=== PATIENT | female | born 2000 | race Caucasian/White ===

== ENCOUNTER 2018-04-11 11:13 | Emergency (ER) | payer OTHER ==
[~2018-04-11] VITALS: Ht 160 cm; Wt 65.8 kg
[2018-04-11 11:18] VITALS: BP 133/69
--- NOTE | 2018-04-11 11:18 | NUR ---
PT TAKEN BY WHEELCHAIR TO ER BED 09
--- NOTE | 2018-04-11 11:20 | NUR ---
17 YO F BIB FRIEND W/C/O L MID FOOT PAIN SINCE LAST NIGHT. PT STATES MISS STEP OUT OF LIFTED TRUCK. MILD SWELLING NOTED, NO REDNESS NO BRUSING. PT STATES THAT SHE IS UNABLE TO BARE WEIGHT. AT THIS TIME. ER MD MADE AWARE. CMS INTACT. WILL CONTINUE TO MONITOR.
--- NOTE | 2018-04-11 11:28 | NUR ---
RADIOLOGY AT BEDSIDE FOR XRAY
--- NOTE | 2018-04-11 12:28 | NUR ---
radiology called for xray results
--- NOTE | 2018-04-11 12:29 | NUR ---
pt talking with friend in no appearent distress, will continue to monitor.
--- NOTE | 2018-04-11 13:37 | NUR ---
AWAITING DISCHARGE PPWK FROM DR. SCHMITT.
[2018-04-11 13:44] VITALS: BP 128/75
--- NOTE | 2018-04-11 13:44 | NUR ---
Patient discharged with v/s stable. Written and verbal after care instructions given and explained. Patient alert, oriented and verbalized understanding of instructions. Ambulatory with CRUTCHES WITH steady gait. All questions addressed prior to discharge. ID band removed. Patient advised to follow up with PMD. Rx of NORCO 5MG/325MG AND MOTRIN 600MG given. Patient educated on indication of medication including possible reaction and side effects. Opportunity to ask questions provided and answered.
== END 2018-04-11 13:44 | disposition home or self-care (01) ==
LOC: MED 11:13
DX: S90.32XA Contusion of left foot, initial encounter (principal); X58.XXXA Exposure to other specified factors, initial encounter; Y93.89 Activity, other specified; Y92.89 Other specified places as the place of occurrence of the external cause; Y99.8 Other external cause status
CPT/HCPCS: 73630; 99284; Q0092

== ENCOUNTER 2019-07-07 07:40 | Emergency (ER) | payer MEDICAID, OTHER ==
[~2019-07-07] VITALS: Ht 160 cm; Wt 65.8 kg
[2019-07-07 07:44] VITALS: BP 108/68
--- NOTE | 2019-07-07 07:44 | NUR ---
Jose ambulated to bed 11. RN evaluating patient at bedside.
--- NOTE | 2019-07-07 07:49 | NUR ---
18 Y/O F C/C COUGH X 1 WEEK. PER PT HAS TAKEN OTC RX WITH NO RELIEF. PAIN ONLY WHEN COUGHING. NOT TAKEN FLU SHOT/FAMILY SICK AT HOME. PT NKA. NO HX. NO RX. NO N/V/D. EXPIRATORY WHEEZES NOTED ON LUNG SOUNDS. SIDE RAIL X.1
--- NOTE | 2019-07-07 08:12 | NUR ---
Dr. Fang is evaluating the patient at bedside.
[2019-07-07 08:20] VITALS: BP 108/68
--- NOTE | 2019-07-07 08:20 | NUR ---
Patient discharged with v/s stable. Written and verbal after care instructions given and explained. Patient alert, oriented and verbalized understanding of instructions. Ambulatory with steady gait. All questions addressed prior to discharge. ID band removed. Patient advised to follow up with PMD. Rx of TESSALON,AUGMENTIN given. Patient educated on indication of medication including possible reaction and side effects. Opportunity to ask questions provided and answered. Addendum: 07/07/19 at 0848 by ROBERTA D/C BY DR LI
== END 2019-07-07 08:20 | disposition home or self-care (01) ==
LOC: MED 07:40
DX: J20.9 Acute bronchitis, unspecified (principal)
CPT/HCPCS: 99283

== ENCOUNTER 2022-08-05 13:52 | Emergency (ER) | payer MEDICAID, OTHER ==
[~2022-08-05] VITALS: Ht 160 cm; Wt 60.3 kg
[2022-08-05 14:04] VITALS: BP 98/59
--- NOTE | 2022-08-05 14:10 | NUR ---
PT TO LOBBY
--- NOTE | 2022-08-05 16:11 | NUR ---
ATTEMPTED TO BRING PT BACK, NOT FOUND IN LOBBY/OUTSIDE
--- NOTE | 2022-08-05 16:26 | NUR ---
LAST ATTEMPT, NOT FOUND IN LOBBY/OUTSIDE. PATIENT LEFT WITHOUT BEING SEEN BY DR. GAMBINO. NO FURTHER CARE PROVIDED FOR PATIENT.
== END 2022-08-05 16:11 | disposition left against medical advice (07) ==
LOC: MED 13:52
DX: H57.13 Ocular pain, bilateral (principal); Z53.21 Procedure and treatment not carried out due to patient leaving prior to being seen by health care provider
CPT/HCPCS: 99281

== ENCOUNTER 2022-08-26 10:09 | Emergency (ER) | payer OTHER ==
[~2022-08-26] VITALS: Ht 160 cm; Wt 59.0 kg
[2022-08-26 10:23] VITALS: BP 117/77
[2022-08-26] MEDS ORDERED: ACETAMINOPHEN 325 MG TAB PO ONE (10:40)
--- NOTE | 2022-08-26 10:44 | NUR ---
21/F PRESENTS TO ED WITH C/O POSSIBLE ABSCESS TO LOWER BACK X2 DAYS. PATIENT REPORTS SITE IS PAINFUL TO TOUCH, APPEARS RED, SWOLLEN AND TENDER. DENIES DRAINAGE OR DISCHARGE FROM SITE, DENIES FEVERS OR CHILLS.
[2022-08-26] MEDS ORDERED: IBUP-2213 PO (10:53)
[2022-08-26] MEDS ORDERED: CEPH-588 PO (10:53)
--- NOTE | 2022-08-26 11:04 | NUR ---
Patient discharged with v/s stable. Written and verbal after care instructions given and explained. Patient alert, oriented and verbalized understanding of instructions. Ambulatory with steady gait. All questions addressed prior to discharge. ID band removed. Patient advised to follow up with PMD. Rx of KEFLEX AND IBUPROFEN given. Patient educated on indication of medication including possible reaction and side effects. Opportunity to ask questions provided and answered.
== END 2022-08-26 11:04 | disposition home or self-care (01) ==
LOC: MED 10:09
DX: L03.317 Cellulitis of buttock (principal); Z79.1 Long term (current) use of non-steroidal anti-inflammatories (NSAID); Z79.2 Long term (current) use of antibiotics
CPT/HCPCS: 99284

== ENCOUNTER 2023-11-05 16:00 | Emergency (ER) | payer OTHER ==
[~2023-11-05] VITALS: Ht 160 cm; Wt 63.5 kg
[~2023-11-05 16:00] MED LIST: CEPH-588 PO; IBUP-2213 PO
[2023-11-05 16:40] VITALS: BP 109/76; PULSE 105; RESP 18; TEMP 98.6; O2SAT 100
[2023-11-05] MEDS ORDERED: AMOX-999 PO (18:07)
[2023-11-05 18:36] VITALS: BP 132/70; PULSE 75; RESP 18; TEMP 98.3; O2SAT 99
== END 2023-11-05 18:36 | disposition home or self-care (01) ==
LOC: MED 16:00
DX: K11.20 Sialoadenitis, unspecified (principal); Z79.899 Other long term (current) drug therapy
CPT/HCPCS: 99283

== ENCOUNTER 2023-11-26 13:48 | Emergency (ER) | payer OTHER ==
[~2023-11-26] VITALS: Ht 160 cm; Wt 63.5 kg
[~2023-11-26 13:48] MED LIST changes: +AMOX-999 PO
[2023-11-26 14:25] VITALS: BP 98/63; PULSE 88; RESP 18; TEMP 97; O2SAT 100
[2023-11-26] MEDS: KETOROLAC 30 MG/ML VIAL IM ONE (15:41)
[2023-11-26 15:50] LABS: APPEARANCE,URINE CLEAR (CLEAR); BILIRUBIN,URINE NEGATIVE (NEGATIVE); BLOOD, URINE NEGATIVE (NEGATIVE); COLOR,URINE YELLOW (YELLOW); LEUKOCYTE ESTERASE ,URINE TRACE (NEGATIVE); NITRITE, URINE NEGATIVE (NEGATIVE); PH,URINE 6.5 (5.0-9.0); PROTEIN,URINE NEGATIVE (NEGATIVE); UGLUCOSE NEGATIVE (NEGATIVE); UROBILINOGEN,URINE 0.2 EU/dL (0.2 - 1)
[2023-11-26 16:06] LABS: BASOPHILS % (AUTO) 0.5 % (0.0-2.0); EOSINOPHILS % (AUTO) 0.9 % (0.0-4.0); HEMATOCRIT 41.9 % (36-48); HEMOGLOBIN 13.9 g/dL (12.0-16.0); LYMPHOCYTES # (AUTO) 1.5 K/uL (2.5-16.5); LYMPHOCYTES % (AUTO) 26.6 % (20.5-51.1); MEAN CORPUSCULAR HEMOGLOBIN 28 pg (27-31); MEAN CORPUSCULAR HGB CONC 33 g/dL (33-37); MEAN CORPUSCULAR VOLUME 85.2 fL (80-94); MONOCYTES # (AUTO) 0.4 K/uL (0.8-1.0); MONOCYTES % (AUTO) 7.5 % (1.7-9.3); NEUTROPHILS # (AUTO) 3.7 K/uL (1.8-7.7); NEUTROPHILS % (AUTO) 64.5 % (42.2-75.2); PLATELET COUNT (AUTO) 332 K/uL (140-450); RED BLOOD CELL COUNT(AUTO) 4.92 MIL/uL (4.20-5.40); RED CELL DISTRIBUTION WIDTH 13.3 % (11.6-13.7); WHITE BLOOD COUNT (AUTO) 5.7 K/uL (4.8-10.8)
[2023-11-26 16:15] LABS: BACTERIA,URINE FEW /HPF (None Seen); MUCUS,URINE 1+ /LPF (None Seen); RBC,URINE 0-5 /HPF (0-5); SQUAMOUS EPITHELIAL CELL,UR 4-10 (MOD) /LPF (0-3 (FEW))
[2023-11-26 16:18] LABS: ANION GAP 11.1 (8-16); CALCIUM 8.9 mg/dL (8.5-10.1); CARBON DIOXIDE 30.8 mmol/L (21-32); CREATININE 0.8 mg/dL (0.6-1.3); POTASSIUM 3.9 mmol/L (3.5-5.1)
[2023-11-26] MEDS ORDERED: CEPH-588 PO (16:27)
[2023-11-26] MEDS ORDERED: IBUP-2213 PO (16:27)
[2023-11-26 16:39] VITALS: BP 98/63; PULSE 88; RESP 18; TEMP 97; O2SAT 100
== END 2023-11-26 16:37 | disposition home or self-care (01) ==
LOC: MED 13:48
DX: N39.0 Urinary tract infection, site not specified (principal); R55 Syncope and collapse; F15.90 Other stimulant use, unspecified, uncomplicated; Z79.899 Other long term (current) drug therapy
CPT/HCPCS: 36415; 80048; 81001; 81025; 85025; 87086; 87186; 93005; 96372; 99284; J1885

== ENCOUNTER 2023-12-18 09:13 | Emergency (ER) | payer OTHER ==
[~2023-12-18] VITALS: Ht 160 cm; Wt 63.5 kg
[2023-12-18 09:29] VITALS: BP 122/73; PULSE 99; RESP 16; TEMP 97.9; O2SAT 99
[2023-12-18] MEDS: IBUPROFEN 400 MG TAB PO ONE (10:40)
[2023-12-18] MEDS: LIDOCAINE 5% 1 EA PATCH TP ONE (10:43)
[2023-12-18 10:47] LABS: APPEARANCE,URINE CLEAR (CLEAR); BILIRUBIN,URINE NEGATIVE (NEGATIVE); BLOOD, URINE TRACE-L (NEGATIVE); COLOR,URINE YELLOW (YELLOW); LEUKOCYTE ESTERASE ,URINE NEGATIVE (NEGATIVE); NITRITE, URINE NEGATIVE (NEGATIVE); PROTEIN,URINE NEGATIVE (NEGATIVE); UGLUCOSE NEGATIVE (NEGATIVE); UROBILINOGEN,URINE 0.2 EU/dL (0.2 - 1)
[2023-12-18 11:11] LABS: BACTERIA,URINE FEW /HPF (None Seen); RBC,URINE 0-5 /HPF (0-5); SQUAMOUS EPITHELIAL CELL,UR 4-10 (MOD) /LPF (0-3 (FEW))
[2023-12-18] MEDS ORDERED: LID5T TP (11:37)
[2023-12-18] MEDS ORDERED: IBUP-1842 PO (11:37)
[2023-12-18 12:05] VITALS: BP 109/70; PULSE 81; RESP 16; TEMP 98.1; O2SAT 100
== END 2023-12-18 12:07 | disposition home or self-care (01) ==
LOC: MED 09:13
DX: M54.50 Low back pain, unspecified (principal); Z79.899 Other long term (current) drug therapy
CPT/HCPCS: 72100; 81001; 81025; 87086; 99284; 99285

== ENCOUNTER 2024-01-24 13:32 | Emergency (ER) | payer OTHER ==
[~2024-01-24] VITALS: Ht 160 cm; Wt 63.6 kg
[~2024-01-24 13:32] MED LIST changes: +IBUP-1842 PO; +LID5T TP
[2024-01-24 13:43] VITALS: BP 116/78; PULSE 74; RESP 16; TEMP 98.1; O2SAT 100
[2024-01-24] MEDS ORDERED: ACET500T99 PO (16:10)
[2024-01-24] MEDS ORDERED: NAPR-1704 PO (16:10)
[2024-01-24 17:02] VITALS: BP 116/78; PULSE 74; RESP 16; TEMP 98.1; O2SAT 100
== END 2024-01-24 16:57 | disposition left against medical advice (07) ==
LOC: MED 13:32
DX: S02.652A Fracture of angle of left mandible, initial encounter for closed fracture (principal); Z79.899 Other long term (current) drug therapy; X58.XXXA Exposure to other specified factors, initial encounter; Y92.89 Other specified places as the place of occurrence of the external cause; Y93.89 Activity, other specified; Y99.8 Other external cause status
CPT/HCPCS: 70110; 99283